=== PATIENT | male | born 1965 | race Caucasian/White ===

== ENCOUNTER 2021-06-19 08:00 | Emergency (ER) | payer OTHER, SELFPAY ==
[2021-06-19] VITALS (9 sets, daily range): BP systolic 152–156; BP diastolic 89–97; PULSE 89–98; RESP 15–24; TEMP 36.9; O2SAT 96–98
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
== END 2021-06-19 09:57 | disposition home or self-care (01) ==
PROVIDERS: Emergency Provider Emergency Medicine; PCP Internal Medicine
DX: S16.1XXA Strain of muscle, fascia and tendon at neck level, initial encounter (principal); R51.9 Headache, unspecified; Z87.891 Personal history of nicotine dependence; V63.5XXA Driver of heavy transport vehicle injured in collision with car, pick-up truck or van in traffic accident, initial encounter
CPT/HCPCS: 70450; 72125; 99284

== ENCOUNTER 2024-09-26 12:03 | Outpatient (CLI) | payer OTHER, SELFPAY ==
--- NOTE | ~2024-09-26 | XR_ITS ---
XR abdomen/kub 1V Ordering provider: Aroldo Klein DO History: . Unspecified abdominal pain, RT SIDED KIDNEY PAINX 2 DAYS . Comparison: None. FINDINGS: BOWEL: Nonobstructive bowel gas pattern. ORGANOMEGALY: None. SIGNIFICANT PATHOLOGIC CALCIFICATIONS: Right kidney stone is seen measuring 1.1 cm. OTHER: No free air is seen under the diaphragm. Degenerative changes of the spine. IMPRESSION: NO ACUTE ABDOMINAL FINDINGS. Right kidney stone. Reviewed, dictated and finalized at location A. EQUIPMENT OPERATOR
== END 2024-09-26 12:04 | disposition home or self-care (01) ==
PROVIDERS: PCP Internal Medicine; Visit Provider Internal Medicine
DX: N20.0 Calculus of kidney (principal)
CPT/HCPCS: 74018